=== PATIENT | male | born 1995 ===

== ENCOUNTER 2021-09-19 21:56 | Emergency (ER) | payer SELFPAY ==
[2021-09-19 22:16] VITALS: BP 118/74
== END 2021-09-20 03:00 | disposition left against medical advice (07) ==
LOC: ED 21:56
DX: R20.0 Anesthesia of skin (principal); Z53.21 Procedure and treatment not carried out due to patient leaving prior to being seen by health care provider

== ENCOUNTER 2021-09-29 07:56 | Emergency (ER) | payer MEDICAID ==
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
[2021-09-29 10:45] LABS: Basophils % (Auto) 0.3 % (0.0-1.8); Eosinophils % (Auto) 0.2 % (0.0-4.3); Hematocrit 35.1 % (35.5-45.6); Hemoglobin 11.5 gm/dl (11.8-15.2); Lymphocytes # (Auto) 2.2 K/mm3 (1.2-5.4); Lymphocytes % (Auto) 19.7 % (13.4-35.0); Mean Corpuscular HGB Conc 33 % (32-34); Mean Corpuscular Volume 104 fl (84-94); Monocytes # (Auto) 1.1 K/mm3 (0.0-0.8); Monocytes % (Auto) 9.9 % (0.0-7.3); Platelet Count 273 K/mm3 (140-440); Red Blood Count 3.38 M/mm3 (3.65-5.03)
[2021-09-29 11:02] LABS: Alanine Aminotransferase 18 units/L (7-56); Blood Urea Nitrogen 6 mg/dL (9-20); Calcium 9.4 mg/dL (8.4-10.2); Hemolysis Index 0
[2021-09-29 11:25] LABS: BUN/Creatinine Ratio 9
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
[2021-09-29 12:25] LABS: Amphetamine Screen,Urine Negative; Benzodiazepines Screen,Urine Negative; Cannabinoid Screen,Urine Negative; Cocaine Screen,Urine Negative; Methadone Screen,Urine Negative; Opiate Screen,Urine Negative
[2021-09-29 12:56] LABS: Bilirubin,Urine NEG (Negative); Blood,Urine LG (Negative); Color,Urine Yellow (Yellow); Urobilinogen,Urine < 2.0 mg/dL (<2.0)
[2021-09-29 12:58] LABS: Bacteria,Urine 2+ /HPF (Negative); Mucus,Urine FEW /HPF
[2021-09-29] MEDS: DOXEPIN 10 MG CAP PO SCH (22:18)
[2021-09-30] MEDS ORDERED: levETIRAcetam 500 MG TAB PO ONE (08:49)
--- NOTE | 2021-09-30 08:51 | Emergency Department Report ---
Blank Doc - Documentation Documentation: We were notified by another patient, also in room 15, that Mr. Olivera appeared to have some seizure-like activity. The other patient said that he noticed Mr. Putnam was "shaking real bad." Allegedly, per nursing staff, the patient also had a seizure or some seizure-like activity yesterday. At the time of my examination he is awake, oriented, but is slightly tremulous and a little slow to respond to questions asked. Otherwise he does not have any focal, motor or sensory deficits. He complains of a generalized headache. He will have a CT scan of the head without contrast and a loading dose of Keppra. 09/30/21 12:[address] scan of the head without contrast does not show any skull fracture, hemorrhage, large vessel occlusion, or any other acute process. He was loaded with a 1 g dose of Keppra. He was placed in room #1 for continued telemetry monitoring. There has been no further seizure-like activity thus far. We will continue to monitor this patient during his ED course.
--- NOTE | 2021-09-30 09:44 | Cat Scan Report ---
CT HEAD WITHOUT CONTRAST INDICATION / CLINICAL INFORMATION: Headache, seizure. TECHNIQUE: All CT scans at this location are performed using CT dose reduction for ALARA by means of automated exposure control. COMPARISON: None available. FINDINGS: BRAIN PARENCHYMA: No acute intracranial hemorrhage. No evidence of recent infarct. No mass effect or midline shift. VENTRICULAR SYSTEM/EXTRA-AXIAL SPACES: Ventricles are normal for age. No extra-axial fluid collection . ORBITS: Normal as visualized. SKELETAL SYSTEM/SOFT TISSUES: Normal bones and soft tissues. PARANASAL SINUSES/MASTOID AIR CELLS: Moderate mucosal thickening of the right maxillary sinus. No air -fluid level. ADDITIONAL FINDINGS: None. IMPRESSION: 1. No acute intracranial abnormality. Signer Name: Volodymyr Johnson MD Signed: 09/30/2021 9:39 AM Workstation Name: [id number]
[2021-09-30] MEDS: FLUoxetine 20 MG CAP PO SCH ×2 (10:40→22:31)
--- NOTE | 2021-09-30 12:13 | Emergency Department Report ---
Blank Doc - Documentation Documentation: S: Patient reportedly had seizure yesterday and today. Patient was loaded with Keppra and had CT head ordered O: Vital Signs - 8 hr 09/30/21 09/30/21 09/30/21 12:19 12:25 12:31 Temperature 97.9 F Pulse Rate 49 L 48 L Respiratory 16 17 Rate Blood Pressure 102/45 Blood Pressure 99/49 [Left] O2 Sat by Pulse 100 100 100 Oximetry 09/30/21 12:45 Temperature Pulse Rate 44 L Respiratory 11 L Rate Blood Pressure 102/45 Blood Pressure [Left] O2 Sat by Pulse 100 Oximetry [facility] [address] [place] [address] Cat Scan Report Signed Patient: TRACIE JENKINS MR#: [id number] : 1995 Acct:[id number] Age/Sex: 25 / M ADM Date: 09/29/21 Loc: ED Attending Dr: Ordering Physician: AMBER ALANIS DO Date of Service: 09/30/21 Procedure(s): CT head/brain wo con Accession Number(s): [id number] cc: AMBER ALANIS DO CT HEAD WITHOUT CONTRAST INDICATION / CLINICAL INFORMATION: Headache, seizure. TECHNIQUE: All CT scans at this location are performed using CT dose reduction for ALARA by means of automated exposure control. COMPARISON: None available. FINDINGS: BRAIN PARENCHYMA: No acute intracranial hemorrhage. No evidence of recent infarct. No mass effect or midline shift. VENTRICULAR SYSTEM/EXTRA-AXIAL SPACES: Ventricles are normal for age. No extra- axial fluid collection. ORBITS: Normal as visualized. SKELETAL SYSTEM/SOFT TISSUES: Normal bones and soft tissues. PARANASAL SINUSES/MASTOID AIR CELLS: Moderate mucosal thickening of the right maxillary sinus. No air-fluid level. ADDITIONAL FINDINGS: None. IMPRESSION: 1. No acute intracranial abnormality. Signer Name: Tyler Johnson MD Signed: 09/30/2021 9:39 AM Workstation Name: [id number] Transcribed By: CL Dictated By: TYLER JOHNSON MD Electronically Authenticated By: TYLER JOHNSON MD Signed Date/Time: 09/30/21938 DD/ 7 TD/TT: Print Cancel E: Schizophrenia/bipolar disorder P: 1013/awaiting inpatient psych, Keppra twice daily
[2021-09-30] MEDS ORDERED: SODIUM CHLORIDE 0.9% 1000 ML 1,000 ML IV ONE ×2 (12:29)
[2021-09-30] MEDS: DOXEPIN 10 MG CAP PO SCH (22:31)
[2021-09-30] MEDS: levETIRAcetam 500 MG TAB PO SCH (22:40)
[2021-10-01] MEDS: FLUoxetine 20 MG CAP PO SCH (09:39)
[2021-10-01] MEDS: levETIRAcetam 500 MG TAB PO SCH (09:39)
--- NOTE | 2021-10-01 11:27 | Emergency Department Report ---
Blank Doc - Documentation Documentation: This patient initially presented for suicidal ideations and was made a 1013. I saw this patient yesterday for the concern for some seizure-like activity, but as previously stated he was given Keppra and had a negative CT scan of the head. No further seizure-like activity since that time. He was seen yesterday by behavioral health and at that time they recommended inpatient stabilization and continuing a 1013. He has not yet been seen by behavioral health today. No events/incidents signed out from overnight or thus far this morning by the ED psychiatric nurse, Lashell. We will continue to monitor this patient during his ED course.
--- NOTE | 2021-10-01 11:29 | Progress Note ---
Subjective - Reason for Consult Consult date: 10/01/21 Reason for consult: SI - Chief Complaint Chief complaint: The patient was seen today. He appears to be developmentally delayed. He says he is doing good, besides hurting in his stomach. He says he is no longer suicidal. The patent says "I feel better. I'm not suicidal." He then says "people have to watch me. I'm slow. Nobody to watch me." I ask the patient about his father, whom he told me he lived with. He says "I don't live with him. I'm homeless and slow." He denies hallucinations of any kind. REVIEW OF SYSTEMS Constitutional: Negative for weight loss ENT: Negative for stridor Respiratory: Negative for cough or hemoptysis All other systems reviewed and are negative MENTAL STATUS EXAMINATION General Appearance and Behavior: Age appropriate, good hygiene, wearing appropriate clothes, good eye contact, calm, cooperative Cooperation: Participating/engaged Psychomotor Behavior: unremarkable and within normal limits Mood: better Affect and affective range: restricted Thought Process: disorganized, flight of ideas Thought Content: SI, hallucinations Speech: normal tone and pace Suicidal Ideation: Denies Homicidal Ideation: Denies Hallucinations: Denies Delusions: None elicited Impulse Control: Limited Insight and Judgment: Limited insight and poor judgment Memory: Limited Attention: attentive Orientation: Alert, oriented Assessment Schizophrenia Bipolar Treatment Plan d/c 1013 Consult case management for living situation. Please make sure the patient sees prior to discharge Prozac 20mg po daily Olanzapine 7.5mg po daily Doxepin 10mg po qhs Sitter: Defer to primary Medical: Per primary Disposition: Do not recommend acute inpatient treatment. The patient was advised that if SI/HI arise he should seek immediate assistance. He verbalizes understanding. Boiler Water Tester to further discuss safety plan and give all necessary resources. Will sign off. Thanks Case discussed with Dr. Becerril Mental Status Exam - Vital signs Last Vital Signs Temp 97.9 F 09/30/21 12:25 Pulse 52 L 09/30/21 22:09 Resp 10 L 09/30/21 22:09 BP 105/47 09/30/21 22:09 Pulse Ox 98 10/01/21 10:18
[2021-10-01 11:51] VITALS: BP 92/42
== END 2021-10-01 17:48 | disposition home or self-care (01) ==
LOC: ED 07:56
DX: R45.851 Suicidal ideations (principal); Z20.822 Contact with and (suspected) exposure to COVID-19; F31.9 Bipolar disorder, unspecified; F20.9 Schizophrenia, unspecified; Z98.890 Other specified postprocedural states
CPT/HCPCS: 36415; 70450; 80053; 80307; 81001; 83735; 85025; 96360; 99285; J7030; U0003; 80320; G0480

== ENCOUNTER 2021-10-12 02:57 | Emergency (ER) | payer MEDICAID ==
[2021-10-12 03:22] VITALS: BP 127/78
== END 2021-10-12 07:22 | disposition left against medical advice (07) ==
LOC: ED 02:57
DX: S09.90XA Unspecified injury of head, initial encounter (principal); Z53.21 Procedure and treatment not carried out due to patient leaving prior to being seen by health care provider; X58.XXXA Exposure to other specified factors, initial encounter; Y93.89 Activity, other specified; Y92.89 Other specified places as the place of occurrence of the external cause; Y99.8 Other external cause status